=== PATIENT | male | born 1955 | race Hispanic/Latino ===

== ENCOUNTER 2018-07-21 09:17 | Inpatient (IN) | payer MEDICARE ==
[2018-07-18 13:57] LABS: BASOPHILS # (AUTO) 0.1 (0.0-0.1); BASOPHILS % 0.7 % (0.0-1.0); EOSINOPHILS # (AUTO) 0.2 (0.0-0.4); EOSINOPHILS % 2.2 % (0.0-6.0); HEMATOCRIT 47.3 % (38.2-49.6); HEMOGLOBIN 16.2 g/dL (14.0-18.0); LYMPHOCYTES % 39.6 % (18.0-39.1); MEAN CORPUSCULAR HGB CONC 34.2 g/dL (31-35); MEAN CORPUSCULAR VOLUME 93.5 fL (81-99); MONOCYTES # (AUTO) 0.7 (0.2-0.8); NEUTROPHILS # (AUTO) 3.6 (2.1-6.9); PLATELET COUNT 248 x10e3/uL (140-360); RED BLOOD COUNT 5.06 x10e6/uL (4.3-5.7); RED CELL DISTRIBUTION WIDTH 12.5 % (11.7-14.4)
[2018-07-18 14:07] LABS: INR 0.9
[2018-07-18 14:13] LABS: ALANINE AMINOTRANSFERASE 42 IU/L (0-55); ALBUMIN 4.4 g/dL (3.5-5.0); ALBUMIN/GLOBULIN RATIO 1.2 (0.8-2.0); ALKALINE PHOSPHATASE 118 IU/L (40-150); ANION GAP 13.1 mmol/L (8-16); BLOOD UREA NITROGEN 11 mg/dL (7-26); BUN/CREATININE RATIO 10 (6-25); CALCIUM 10.1 mg/dL (8.4-10.2); CARBON DIOXIDE 30 mmol/L (22-29); CHLORIDE 101 mmol/L (98-107); CREATININE, SERUM 1.11 mg/dL (0.72-1.25); EST GLOMERULAR FILTRATION RATE > 60 ML/MIN (60-); GLUCOSE 95 mg/dL (74-118); POTASSIUM 5.1 mmol/L (3.5-5.1); SODIUM 139 mmol/L (136-145)
--- NOTE | 2018-07-18 15:39 | Diagnostic Imaging Report ---
Frontal and lateral views of the chest. HISTORY: Preop, prostate surgery COMPARISON: None available. DISCUSSION: Lungs: The lungs are well inflated. No evidence of a consolidative pneumonia or pulmonary alveolar edema. Pleura: No pleural effusion or pneumothorax. Heart and mediastinum: The cardiomediastinal silhouette appears unremarkable. Bones: No acute osseous lesion. Other: Metallic surgical clips project in the region of the left side of T8. IMPRESSION: No acute radiographic abnormality. Signed by: Dr. Marco Nelson D.O., M.M.M. on 07/18/2018 3:36 PM
[~2018-07-21] VITALS: Ht 167.6 cm; Wt 100.7 kg
[~2018-07-21 09:17] MED LIST: ETODOLAC400 MG PO; GABAPENTIN100 MG PO; TRAMADOL HCL100 MG PO; TYLENOL WITH C1 EACH PO
--- OUTSIDE RECORDS SUMMARY | 2018-07-21 09:19 | XMS REPORT ---
Author [facility] Address Unknown Phone Unavailable Care Team Providers Care Firer Low Pressure Name Role Phone ZACK HOOPER Unavailable Unavailable Problems This patient has no known problems. Allergies, Adverse Reactions, Alerts This patient has no known allergies or adverse reactions. Medications This patient has no known medications. Results Test Description Test Time Test Comments Text Results Atomic Results Result Comments CHEST 2 VIEWS 2018-07-18 15:35:00 [place] [id number] Patient Name: DOUGLAS VILLANUEVA MR #: [id number] : 1955 Age/Sex: 62/M Req #: [id number] Adm Physician: Ordered by: ZACK HOOPER MD Report #: [id number] Location: OR Room/Bed: Procedure: [id number] DX/CHEST 2 VIEWS Exam Date: 07/18/18 Exam Time: 1405 REPORT STATUS: Signed Frontal and lateral views of the chest. HISTORY: Preop, prostate surgery COMPARISON: None available. DISCUSSION: Lungs: The lungs are well inflated. No evidence of a consolidative pneumonia or pulmonary alveolar edema. Pleura: No pleural effusion or pneumothorax. Heart and mediastinum: The cardiomediastinal silhouette appears unremarkable. Bones: No acute osseous lesion. Other: Metallic surgical clips project in the region of the left side of T8. IMPRESSION: No acute radiographic abnormality. Signed by: Dr. Robinson Nelson D.O., M.M.M. on 07/18/2018 3:36 PM Dictated By: ROBINSON NELSON DO 153 Transcribed By: MARIELA on 07/18/181535 COPY TO: ZACK HOOPER MD
--- OUTSIDE RECORDS SUMMARY | 2018-07-21 09:19 | XMS REPORT | Clinical Summary ---
Author Author [employer] Organization [employer] Address Unknown Phone Unavailable Care Team Providers Care Professor Of Communication Name Role Phone Asked, No Pcp PCP Unavailable Allergies No Known Allergies Current Medications Prescription Sig. Disp. Refills Start End Date Status Date acetaminophen-codeine Take 1 tablet by mouth 2 Active (TYLENOL WITH CODEINE #3) (two) times a day as 300-30 mg per tablet needed (moderate to severe pain). gabapentin (NEURONTIN) Take 400 mg by mouth 3 Active 400 mg capsule (three) times a day. etodolac (LODINE) 200 MG Take 200 mg by mouth Active capsule every 8 (eight) hours. traMADol (ULTRAM) 50 mg Take 50 mg by mouth 2 Active tablet (two) times a day as needed for moderate pain (50-100mg as needed for pain). clindamycin (CLEOCIN) 300 Take 300 mg by mouth 3 01/20/01/28/20 Discontin MG capsule (three) times a day. 18 18 ued clotrimazole (LOTRIMIN) 1 Apply 1 application 01/28/20 Discontin % cream topically 2 (two) times a 18 ued day. clindamycin (CLEOCIN) 300 Take 1 capsule (300 mg 30 capsule 0 01/28/20 02/07/20 MG capsule total) by mouth 3 (three) 18 18 times a day for 10 days. amoxicillin-pot Take 1 tablet by mouth 20 tablet 0 03/07/20 03/17/20 clavulanate (AUGMENTIN) every 12 (twelve) hours 18 18 875-125 mg per tablet for 10 days. ibuprofen (ADVIL,MOTRIN) Take 1 tablet (600 mg 20 tablet 0 03/07/20 03/17/20 600 MG tablet total) by mouth every 6 18 18 (six) hours as needed for moderate pain or headaches for up to 10 days. acetaminophen (TYLENOL Take 2 tablets (1,000 mg 20 tablet 0 03/07/20 03/17/20 EXTRA STRENGTH) 500 MG total) by mouth every 6 18 18 tablet (six) hours as needed for mild pain or headaches for up to 10 days. Active Problems Problem Noted Date Cellulitis of right foot 01/23/2018 Electrolyte and fluid disorder 01/23/2018 Obstructive chronic bronchitis with exacerbation (HCC) 01/23/2018 Cellulitis 01/22/2018 Encounters Date Type Specialty Care Team Description 03/07/2018 Emergency Emergency Medicine Popeye Meier MD Strep throat (Primary Dx) 01/27/2018 Patient Quality Jenna, Yuridia R Outreach 01/22/2018 [facility] General Internal Medicine Popeye Kaur MD Abscess of right foot - Encounter Tr Malik MD excluding toes (Primary 01/27/2018 Seferino Padron MD Dx); Cellulitis, unspecified cellulitis site; Chills; Cellulitis of right foot; Obstructive chronic bronchitis with exacerbation 01/20/2018 Hospital Radiology Tr Malik MD Cellulitis, unspecified Encounter cellulitis site; Pain 01/20/2018 Transcribe Radiology Tr Malik MD Cellulitis, unspecified Orders cellulitis site (Primary Dx); Pain after 07/20/2017 Family History Medical History Relation Name Comments Hyperlipidemia Father No Known Problems Mother Relation Name Status Comments Father Mother Social History Tobacco Use Types Packs/Day Years Used Date Never Smoker Smokeless Tobacco: Never Used Alcohol Use Drinks/Week oz/Week Comments No Sex Assigned at Date Recorded Not on file Last Filed Vital Signs Vital Sign Reading Time Taken Blood Pressure 113/69 03/07/2018 8:52 AM CDT Pulse 89 03/07/2018 8:52 AM CDT Temperature 36.8 C (98.2 F) 03/07/2018 8:52 AM CDT Respiratory Rate 20 03/07/2018 8:52 AM CDT Oxygen Saturation 96% 03/07/2018 8:52 AM CDT Inhaled Oxygen - - Concentration Weight 88.5 kg (195 lb) 03/07/2018 7:03 AM CDT Height 167.6 cm (5' 6") 03/07/2018 7:03 AM CDT Body Mass Index 31.47 03/07/2018 7:03 AM CDT Plan of Treatment Health Maintenance Due Date Last Done Comments COLON CANCER SCREENING 2005 SHINGRIX VACCINE (#1) 2005 ZOSTER VACCINE 2015 INFLUENZA VACCINE 04/19/2018 Procedures Procedure Name Priority Date/Time Associated Diagnosis Comments CT SINUS WO CONTRAST STAT 03/07/2018 Results for this 7:55 AM CDT procedure are in the results section. CT HEAD WO CONTRAST STAT 03/07/2018 Results for this 7:53 AM CDT procedure are in the results section. RESPIRATORY PATHOGEN Routine 03/07/2018 Results for this PANEL 7:32 AM CDT procedure are in the results section. INFLUENZA ANTIGEN Routine 03/07/2018 Results for this 7:32 AM CDT procedure are in the results section. GROUP A STREP, RAPID Routine 03/07/2018 Results for this ANTIGEN 7:31 AM CDT procedure are in the results section. ZZESTIMATED GFR STAT 03/07/2018 Results for this 7:16 AM CDT procedure are in the results section. COMPREHENSIVE METABOLIC STAT 03/07/2018 Results for this PANEL 7:16 AM CDT procedure are in the results section. HC COMPLETE BLD COUNT STAT 03/07/2018 Results for this W/AUTO DIFF 7:16 AM CDT procedure are in the results section. GENERAL Routine 01/26/2018 Abscess of right foot Results for this 10:08 AM CDT excluding toes procedure are in the results section. GRAM STAIN Routine 01/26/2018 Results for this 10:00 AM CDT procedure are in the results section. ANAEROBIC CULTURE Routine 01/26/2018 Results for this 10:00 AM CDT procedure are in the results section. AEROBIC CULTURE Routine 01/26/2018 Results for this 10:00 AM CDT procedure are in the results section. ZZESTIMATED GFR Timed 01/24/2018 Results for this 8:17 AM CDT procedure are in the results section. COMPREHENSIVE METABOLIC Timed 01/24/2018 Results for this PANEL 8:17 AM CDT procedure are in the results section. HC COMPLETE BLD COUNT Timed 01/24/2018 Results for this W/AUTO DIFF 8:17 AM CDT procedure are in the results section. VANCOMYCIN LEVEL, TROUGH Timed 01/23/2018 Results for this 8:15 PM CDT procedure are in the results section. US DUPLEX ARTERIAL LOWER Routine 01/23/2018 Results for this EXTREMITY BILATERAL 4:57 PM CDT procedure are in the results section. ZZESTIMATED GFR Routine 01/23/2018 Results for this 2:26 PM CDT procedure are in the results section. THYROID STIMULATING Routine 01/23/2018 Results for this HORMONE 2:26 PM CDT procedure are in the results section. COMPREHENSIVE METABOLIC Routine 01/23/2018 Results for this PANEL 2:26 PM CDT procedure are in the results section. HC COMPLETE BLD COUNT Routine 01/23/2018 Results for this W/AUTO DIFF 2:26 PM CDT procedure are in the results section. LACTIC ACID LEVEL, SEPSIS Timed 01/22/2018 Results for this - NOW AND REPEAT 2X EVERY 11:09 PM CDT procedure are in the 3 HOURS results section. BLOOD CULTURE, AEROBIC & Routine 01/22/2018 Results for this ANAEROBIC 4:58 PM CDT procedure are in the results section. XR FOOT 3+ VW RIGHT STAT 01/22/2018 Results for this 4:54 PM CDT procedure are in the results section. ZZESTIMATED GFR STAT 01/22/2018 Results for this 4:52 PM CDT procedure are in the results section. LACTIC ACID LEVEL, SEPSIS STAT 01/22/2018 Results for this - NOW AND REPEAT 2X EVERY 4:52 PM CDT procedure are in the 3 HOURS results section. BASIC METABOLIC PANEL STAT 01/22/2018 Results for this 4:52 PM CDT procedure are in the results section. HC COMPLETE BLD COUNT STAT 01/22/2018 Results for this W/AUTO DIFF 4:52 PM CDT procedure are in the results section. BLOOD CULTURE, AEROBIC & Routine 01/22/2018 Results for this ANAEROBIC 4:52 PM CDT procedure are in the results section. US DUPLEX VENOUS LOWER STAT 01/20/2018 Cellulitis, unspecified Results for this EXTREMITY RIGHT 7:48 PM CDT cellulitis site procedure are in the Pain results section. after 07/20/2017 Results * CT Sinus Wo Contrast (03/07/2018 7:55 AM) Narrative Performed At EXAMINATION: CT SINUS WO CONTRAST [facility] CLINICAL HISTORY: sinus headache COMPARISON:None TECHNIQUE: Axial noncontrast enhanced images were obtained through the paranasal sinuses. Bone and soft tissue windows were displayed as well as coronal and sagittal reconstructed images.CT imaging was performed with iterative reconstruction technique and/or automated exposure control to reduce radiation dose. FINDINGS: Hypoplastic frontal sinuses are clear. Trace mucosal thickening in a few ethmoid air cells. Trace mucosal thickening of the anterior aspect of the sphenoid sinuses. Trace mucosal thickening of the posteromedial aspect of the left maxillary sinus. Hypoplastic maxillary sinuses. Bilateral maxillary ostiomeatal units, frontoethmoidal, and sphenoethmoidal recesses are patent. Evaluation of the nasal cavity demonstrates mucosal nodularity of the inferior turbinates. There is leftward nasal septal deviation posteriorly with apical spur. No evidence of nasal mass or ulceration. Limited evaluation of the visualized intracranial contents demonstrates no acute abnormality. Orbital contents are unremarkable. Mastoid air cells are clear. Mild enlargement of the palatine tonsils with coarse left palatine tonsillolith. IMPRESSION: No significant paranasal sinus inflammation. Patency of the bilateral sinonasal drainage pathways. [id number] Procedure Note Interface, Radiology Results Incoming - 03/07/2018 8:03 AM CDT EXAMINATION: CT SINUS WO CONTRAST CLINICAL HISTORY: sinus headache COMPARISON: None TECHNIQUE: Axial noncontrast enhanced images were obtained through the paranasal sinuses. Bone and soft tissue windows were displayed as well as coronal and sagittal reconstructed images. CT imaging was performed with iterative reconstruction technique and/or automated exposure control to reduce radiation dose. FINDINGS: Hypoplastic frontal sinuses are clear. Trace mucosal thickening in a few ethmoid air cells. Trace mucosal thickening of the anterior aspect of the sphenoid sinuses. Trace mucosal thickening of the posteromedial aspect of the left maxillary sinus. Hypoplastic maxillary sinuses. Bilateral maxillary ostiomeatal units, frontoethmoidal, and sphenoethmoidal recesses are patent. Evaluation of the nasal cavity demonstrates mucosal nodularity of the inferior turbinates. There is leftward nasal septal deviation posteriorly with apical spur. No evidence of nasal mass or ulceration. Limited evaluation of the visualized intracranial contents demonstrates no acute abnormality. Orbital contents are unremarkable. Mastoid air cells are clear. Mild enlargement of the palatine tonsils with coarse left palatine tonsillolith. IMPRESSION: No significant paranasal sinus inflammation. Patency of the bilateral sinonasal drainage pathways. [id number] Performing Organization Address City/State/Zipcode Phone Number [facility] [address] [place] [address] * CT Head Wo Contrast (03/07/2018 7:53 AM) Narrative Performed At Examination: [facility]: headache Comparison: NONE Technique: Multiple axial CT images of the brain are obtained without the use of intravenous contrast. CT scans are performed using radiation dose reduction techniques. Technical factors are evaluated and adjusted to ensure appropriate moderation of exposure. Automated dose management technology is applied to adjust radiation dose to minimize exposure, while achieving a diagnostic image. FINDINGS: The visualized paranasal sinuses are clear. The mastoid air cells are well aerated. The globes and optic nerves are unremarkable. The ventricles are symmetrical. There is no mass effect or any midline shift. There is no evidence of any extra-axial fluid collection. There is no parenchymal hemorrhage or mass lesion. There is maintenance of the brandt-white junction. The posterior fossa does not demonstrate any masses. IMPRESSION: 1. There Is no acute intracranial abnormality. [facility]-[id number] Procedure Note Interface, Radiology Results Incoming - 03/07/2018 7:59 AM CDT Examination: CT HEAD WO CONTRAST Clinical History: headache Comparison: NONE Technique: Multiple axial CT images of the brain are obtained without the use of intravenous contrast. CT scans are performed using radiation dose reduction techniques. Technical factors are evaluated and adjusted to ensure appropriate moderation of exposure. Automated dose management technology is applied to adjust radiation dose to minimize exposure, while achieving a diagnostic image. FINDINGS: The visualized paranasal sinuses are clear. The mastoid air cells are well aerated. The globes and optic nerves are unremarkable. The ventricles are symmetrical. There is no mass effect or any midline shift. There is no evidence of any extra-axial fluid collection. There is no parenchymal hemorrhage or mass lesion. There is maintenance of the brandt-white junction. The posterior fossa does not demonstrate any masses. IMPRESSION: 1. There Is no acute intracranial abnormality. [facility]-[id number] Performing Organization Address City/State/Zipcode Phone Number [facility] [address] [place] [address] * Respiratory pathogen panel (03/07/2018 7:32 AM) Respiratory pathogen Negative for all pathogens [facility] DEPARTMENT OF panel tested: PATHOLOGY AND Negative for Adenovirus GENOMIC MEDICINE Negative for Coronavirus HKU1 Negative for Coronavirus NL63 Negative for Coronavirus 229E Negative for Coronavirus OC43 Negative for Human Metapneumovirus Negative for Rhinovirus/Enterovirus Negative for Influenza A Negative for Influenza A/H1 Negative for Influenza A/H3 Negative for Influenza A/H1-2009 Negative for Influenza B Negative for Parainfluenza Virus 1 Negative for Parainfluenza Virus 2 Negative for Parainfluenza Virus 3 Negative for Parainfluenza Virus 4 Negative for Respiratory Syncytial Virus Negative for Bordetella pertussis Negative for Chlamydophila pneumoniae Negative for Mycoplasma pneumoniae This real-time PCR assay detects the presence of nucleic acids (RNA or DNA) for the respiratory pathogens listed. A result of "Not-detected" does not exclude the possibility of the presence of one or more pathogens at concentrations less than the detectable limits of the assay. Comment: Specimen Information Specimen Source: Nares Specimen Site: Right Specimen Nares - Right Performing Organization Address City/State/Zipcode Phone Number [facility] DEPARTMENT OF [address] [place] [address] PATHOLOGY AND GENOMIC MEDICINE * Influenza antigen (03/07/2018 7:32 AM) Influenza antigen Negative for Influenza A/B [facility] OF antigen. PATHOLOGY AND Comment: GENOMIC MEDICINE Specimen Information Specimen Source: Nares Specimen Site: Right Specimen Nares - Right Performing Organization Address City/[facility] Phone Number [facility] OF [address] [phone] PATHOLOGY AND [facility] MEDICINE * Group A strep, rapid antigen (03/07/2018 7:31 AM) Group A strep, rapid Positive for Group A Strep [facility] OF antigen result antigen. (A) PATHOLOGY AND Comment: GENOMIC MEDICINE Specimen Information Specimen Source: Throat Specimen Site: Not otherwise specified Specimen Throat - Not otherwise specified Performing Organization Address City/[facility] Phone Number [facility] OF [address] [phone] PATHOLOGY AND [employer] MEDICINE * Estimated GFR (03/07/2018 7:16 AM) Only the most recent of 4 results within the time period is included. GFR Non Af Amer 85 mL/min/1.73 m2 [facility] PATHOLOGY AND GENOMIC MEDICINE GFR Af Amer >90 mL/min/1.73 m2 [facility] OF Comment: PATHOLOGY AND Chronic kidney disease: <60 GENOMIC MEDICINE mL/min/1.73m2 Kidney failure: <15 mL/min/1.73m2 The estimated GFR is calculated from the IDMS-traceable Modification of Diet in Renal Disease Equation. The accuracy of the calculation is poor when the creatinine is normal. Calculated values >90 mL/min/1.73m2 are not reported. This equation has not been validated in children (<18 years), women, the elderly (>70 years), or ethnic groups other than Caucasians and Americans. Specimen Plasma specimen Performing Organization Address City/State/Zipcode Phone Number [address] [phone] [place] [address] PATHOLOGY AND GENOMIC MEDICINE * CBC with platelet and differential (03/07/2018 7:16 AM) Only the most recent of 4 results within the time period is included. WBC 15.9 (H) 4.2 - 11.0 k/uL [facility] OF PATHOLOGY AND GENOMIC MEDICINE RBC 4.91 4.04 - 5.86 m/uL [facility] OF PATHOLOGY AND GENOMIC MEDICINE HGB 15.6 13.0 - 17.3 g/dL [facility] OF PATHOLOGY AND GENOMIC MEDICINE HCT 46.4 (H) 34.0 - 45.0 % [facility] OF PATHOLOGY AND GENOMIC MEDICINE MCV 94.5 80.0 - 98.0 fL [facility] OF PATHOLOGY AND GENOMIC MEDICINE MCH 31.8 27.0 - 34.0 pg [facility] OF PATHOLOGY AND GENOMIC MEDICINE MCHC 33.6 31.5 - 36.5 g/dL [facility] OF PATHOLOGY AND GENOMIC MEDICINE RDW - SD 44.7 37.0 - 51.0 fL [facility] OF PATHOLOGY AND GENOMIC MEDICINE MPV 9.7 7.4 - 10.4 fL [facility] OF PATHOLOGY AND GENOMIC MEDICINE Platelet count 228 150 - 400 k/uL [facility] OF PATHOLOGY AND GENOMIC MEDICINE Nucleated RBC 0.00 /100 WBC [facility] OF PATHOLOGY AND GENOMIC MEDICINE Neutrophils 83.5 (H) 36.0 - 66.0 % [facility] OF PATHOLOGY AND GENOMIC MEDICINE Lymphocytes 7.5 (L) 24.0 - 44.0 % [facility] OF PATHOLOGY AND GENOMIC MEDICINE Monocytes 7.8 (H) 0.0 - 6.0 % [facility] OF PATHOLOGY AND GENOMIC MEDICINE Eosinophils 0.4 0.0 - 6.0 % [facility] OF PATHOLOGY AND GENOMIC MEDICINE Basophils 0.2 0.0 - 1.2 % [facility] OF PATHOLOGY AND GENOMIC MEDICINE Immature granulocytes 0.6 0.0 - 1.0 % [facility] OF PATHOLOGY AND GENOMIC MEDICINE Specimen Blood Performing Organization Address City/State/Zipcode Phone Number [facility] [address] [place] [address] PATHOLOGY AND GENOMIC MEDICINE * Comprehensive metabolic panel (03/07/2018 7:16 AM) Only the most recent of 3 results within the time period is included. Sodium 136 135 - 150 mEq/L [facility] OF PATHOLOGY AND GENOMIC MEDICINE Potassium 3.8 3.5 - 5.0 mEq/L [facility] OF PATHOLOGY AND GENOMIC MEDICINE Chloride 101 100 - 109 mEq/L [facility] OF PATHOLOGY AND GENOMIC MEDICINE CO2 26 24 - 32 mmol/L [facility] OF PATHOLOGY AND GENOMIC MEDICINE Anion gap 9@ANIO 7 - 15 mEq/L [facility] OF PATHOLOGY AND GENOMIC MEDICINE BUN 6 (L) 7 - 18 mg/dL [facility] OF PATHOLOGY AND GENOMIC MEDICINE Creatinine 0.9 0.8 - 1.5 mg/dL [facility] OF PATHOLOGY AND GENOMIC MEDICINE Glucose 138 (H) 65 - 100 mg/dL [facility] OF PATHOLOGY AND GENOMIC MEDICINE Calcium 8.7 8.6 - 10.7 mg/dL [facility] OF PATHOLOGY AND GENOMIC MEDICINE Protein 8.4 (H) 6.3 - 8.2 g/dL [facility] OF PATHOLOGY AND GENOMIC MEDICINE Albumin 4.0 3.2 - 5.0 g/dL [facility] OF PATHOLOGY AND GENOMIC MEDICINE A/G ratio 0.9 0.7 - 3.8 [facility] OF PATHOLOGY AND GENOMIC MEDICINE Alkaline phosphatase 124 (H) 30 - 120 U/L [facility] OF PATHOLOGY AND GENOMIC MEDICINE AST 23 15 - 37 U/L [facility] OF PATHOLOGY AND GENOMIC MEDICINE ALT 34 30 - 65 U/L [facility] OF PATHOLOGY AND GENOMIC MEDICINE Total bilirubin 0.7 0.2 - 1.2 mg/dL [facility] OF PATHOLOGY AND GENOMIC MEDICINE Specimen Plasma specimen Performing Organization Address City/State/Zipcode Phone Number [facility] [address] [place] [address] PATHOLOGY AND GENOMIC MEDICINE * GENERAL (01/26/2018 10:08 AM) Narrative Performed At Tonja Berkowitz MD 01/26/2018 10:10 AM Other, drainage of right foot abscess Date/Time: 01/26/2018 10:09 AM Performed by: TONJA BERKOWITZ Authorized by: TONJA BERKOWITZ Consent: Consent obtained:Written Consent given by:Patient Risks discussed:Bleeding, infection and pain Indications: Indications:Right foot infection, not responding to antibiotics alone Pre-procedure details: Skin preparation:Betadine Preparation: Patient was prepped and draped in the usual sterile fashion Anesthesia (see MAR for exact dosages): Anesthesia method:Local infiltration Local anesthetic:Lidocaine 2% WITH epi Post-procedure details: Patient tolerance of procedure:Tolerated well, no immediate complications Comments: Dictated [id number] * Aerobic culture (01/26/2018 10:00 AM) Aerobic culture isolate Staphylococcus aureus [facility] DEPARTMENT OF Many PATHOLOGY AND , susceptibility to follow [employer] MEDICINE This organism is Methicillin Sensitive. (A) Comment: Specimen Information Specimen Source: Pus Specimen Site: Foot Specimen Pus - Foot Organism Antibiotic Method Susceptibility Staphylococcus aureus Clindamycin LONNY <=0.5 mcg/mL: Susceptible Staphylococcus aureus Erythromycin LONNY <=0.5 mcg/mL: Susceptible Staphylococcus aureus Levofloxacin LONNY <=1 mcg/mL: Susceptible Staphylococcus aureus Linezolid LONNY 2 mcg/mL: Susceptible Staphylococcus aureus Minocycline LONNY <=1 mcg/mL: Susceptible Staphylococcus aureus Oxacillin LONNY 0.5 mcg/mL: Susceptible Staphylococcus aureus Penicillin G LONNY <=0.125 mcg/mL: Susceptible Staphylococcus aureus Rifampin LONNY <=0.5 mcg/mL: Susceptible Staphylococcus aureus Trimethoprim/Sulfamethoxa LONNY <=0.5/9.5 mcg/mL: zole Susceptible Staphylococcus aureus Tetracycline LONNY >8 mcg/mL: Resistant Staphylococcus aureus Vancomycin LONNY 1 mcg/mL: Susceptible Performing Organization Address City/[facility] Phone Number [facility] DEPARTMENT OF [address] [place] [address] PATHOLOGY AND GENOMIC MEDICINE * Gram stain (01/26/2018 10:00 AM) Gram stain isolate Occasional WBC's [facility] DEPARTMENT OF Few Gram positive cocci in PATHOLOGY AND pairs GENOMIC MEDICINE Comment: Specimen Information Specimen Source: Pus Specimen Site: Foot Specimen Pus - Foot Performing Organization Address City/[facility] Phone Number [facility] DEPARTMENT OF [address] [place] [address] PATHOLOGY AND GENOMIC MEDICINE * Anaerobic culture (01/26/2018 10:00 AM) Anaerobic culture isolate No anaerobic organisms [facility] DEPARTMENT OF isolated. PATHOLOGY AND Comment: GENOMIC MEDICINE Specimen Information Specimen Source: Pus Specimen Site: Foot Specimen Pus - Foot Performing Organization Address City/[facility] Phone Number [facility] DEPARTMENT OF [address] [place] [address], [place] [address] PATHOLOGY AND GENOMIC MEDICINE * Vancomycin level, trough (01/23/2018 8:15 PM) Vancomycin, trough 14.3 10.0 - 20.0 ug/mL [facility] Comment: PATHOLOGY AND Therapeutic Ranges: GENOMIC MEDICINE Peak30.0 - 40.0 ug/mL Vowiny85.0 - 20.0 ug/mL Specimen Blood Performing Organization Address City/State/Zipcode Phone Number [facility] OF [address] [place] [address] PATHOLOGY AND GENOMIC MEDICINE * Pv duplex arterial lower extremity (01/23/2018 4:57 PM) Narrative Performed At EXAM: US DUPLEX ARTERIAL LOWER EXTREMITY BILATERAL [facility] HISTORY: cellulitis of the foot with decreased pulses TECHNIQUE: Real-time as well as pulsed and color Doppler evaluation of bilateral common femoral, femoral, popliteal, posterior tibial, anterior tibial, and dorsalis pedis arteries are evaluated. The examination includes a full duplex Doppler scan of the blood vessels (real-time P mode grayscale, Doppler spectral analysis, and Doppler color flow imaging). IMPRESSION: Normal examination. FINDINGS: Peak systolic velocities are as follows: RIGHT LEG: COMMON FEMORAL:89cm/s FEMORAL: Proximal: 87cm/s Mid:95 cm/s Distal:100cm/s POPLITEAL: Proximal:87cm/s Mid:76 cm/s Distal: 84cm/s POSTERIOR TIBIAL: Proximal: 57 cm/s Mid:63 cm/s Distal:73 cm/s ANTERIOR TIBIAL: Proximal: 70 cm/s Mid:99 cm/s Distal:83 cm/s DORSALIS PEDIS: 30 cm/s Waveforms: Triphasic LEFT LEG: COMMON FEMORAL:111 cm/s FEMORAL: Proximal: 89 cm/s Mid:93 cm/s Distal:75 cm/s POPLITEAL: Proximal: 58 cm/s Mid:62 cm/s Distal: 64cm/s POSTERIOR TIBIAL: Proximal: 62 cm/s Mid:42 cm/s Distal:32 cm/s ANTERIOR TIBIAL: Proximal:50cm/s Mid:58 cm/s Distal:70 c m/s DORSALIS PEDIS:99cm/s Waveforms: Triphasic [id number] Procedure Note Interface, Radiology Results Incoming - 01/23/2018 5:12 PM CDT EXAM: US DUPLEX ARTERIAL LOWER EXTREMITY BILATERAL HISTORY: cellulitis of the foot with decreased pulses TECHNIQUE: Real-time as well as pulsed and color Doppler evaluation of bilateral common femoral, femoral, popliteal, posterior tibial, anterior tibial, and dorsalis pedis arteries are evaluated. The examination includes a full duplex Doppler scan of the blood vessels (real-time P mode grayscale, Doppler spectral analysis, and Doppler color flow imaging). IMPRESSION: Normal examination. FINDINGS: Peak systolic velocities are as follows: RIGHT LEG: COMMON FEMORAL: 89cm/s FEMORAL: Proximal: 87cm/s Mid: 95 cm/s Distal: 100cm/s POPLITEAL: Proximal: 87cm/s Mid: 76 cm/s Distal: 84cm/s POSTERIOR TIBIAL: Proximal: 57 cm/s Mid: 63 cm/s Distal: 73 cm/s ANTERIOR TIBIAL: Proximal: 70 cm/s Mid: 99 cm/s Distal: 83 cm/s DORSALIS PEDIS: 30 cm/s Waveforms: Triphasic LEFT LEG: COMMON FEMORAL: 111 cm/s FEMORAL: Proximal: 89 cm/s Mid: 93 cm/s Distal: 75 cm/s POPLITEAL: Proximal: 58 cm/s Mid: 62 cm/s Distal: 64cm/s POSTERIOR TIBIAL: Proximal: 62 cm/s Mid: 42 cm/s Distal: 32 cm/s ANTERIOR TIBIAL: Proximal: 50cm/s Mid: 58 cm/s Distal: 70 c m/s DORSALIS PEDIS: 99cm/s Waveforms: Triphasic [facility]-[id number] Performing Organization Address [facility] Phone Number [facility] [address] [place] [address] * Thyroid stimulating hormone (01/23/2018 2:26 PM) TSH 0.54 0.38 - 4.82 uIU/mL [facility]OLOGY AND GENOMIC MEDICINE Specimen Plasma specimen Performing Organization Address [facility] Phone Number [address] [address] PATHOLOGY AND GENOMIC MEDICINE * Lactic acid level, SEPSIS - Now and repeat 2x every 3 hours (01/22/2018 11:09 PM) Only the most recent of 2 results within the time period is included. Lactic acid 1.1 0.5 - 2.2 mmol/L [facility]OLOGY AND GENOMIC MEDICINE Specimen Blood Performing Organization Address City/[facility] Cent[facility]ode Phone Number [facility] OF [address] [place] [address] PATHOLOGY AND GENOMIC MEDICINE * Blood culture, aerobic & anaerobic (01/22/2018 4:58 PM) Only the most recent of 2 results within the time period is included. Blood culture isolate No growth after 5 days of [facility] DEPARTMENT OF incubation. PATHOLOGY AND Comment: GENOMIC MEDICINE Specimen Information Specimen Source: Blood Specimen Site: RH Specimen Blood Performing Organization Address [facility]/Zipcode Phone Number [facility] DEPARTMENT OF [address] [place] [address] PATHOLOGY AND GENOMIC MEDICINE * XR Foot 3+ Vw Right (01/22/2018 4:54 PM) Narrative Performed At EXAMINATION:XR FOOT 3VW RIGHT [facility] CLINICAL HISTORY:OSTEOMYELITISFOOT COMPARISON:None. IMPRESSION: No fracture or dislocation. No destructive lesion. There is some soft tissue swelling on dorsal the foot. [facility]-[id number] Procedure Note Interface, Radiology Results Incoming - 01/22/2018 5:00 PM CDT EXAMINATION: XR FOOT 3 VW RIGHT CLINICAL HISTORY: OSTEOMYELITIS FOOT COMPARISON: None. IMPRESSION: No fracture or dislocation. No destructive lesion. There is some soft tissue swelling on dorsal the foot. [facility]-[id number] Performing Organization Address [facility]/Zipcode Phone Number [facility] [address] [place] [address] * Basic metabolic panel (01/22/2018 4:52 PM) Sodium 139 135 - 150 mEq/L [facility] OF PATHOLOGY AND [employer] MEDICINE Potassium 4.1 3.5 - 5.0 mEq/L [facility]OLOGY AND GENOMIC MEDICINE Chloride 100 100 - 109 mEq/L [facility] OF PATHOLOGY AND GENOMIC MEDICINE CO2 28 24 - 32 mmol/L [facility]MENT OF PATHOLOGY AND GENOMIC MEDICINE Anion gap 11 7 - 15 mEq/L [facility] OF Comment: PATHOLOGY AND Starting from December [employer] [facility]INE , anion gap calculation no longer incorporates potassium. Please note the change. BUN 10 7 - 18 mg/dL [facility] OF PATHOLOGY AND GENOMIC MEDICINE Creatinine 0.9 0.8 - 1.5 mg/dL [facility] OF PATHOLOGY AND GENOMIC MEDICINE Glucose 91 65 - 100 mg/dL [facility] OF PATHOLOGY AND GENOMIC MEDICINE Calcium 9.3 8.6 - 10.7 mg/dL [facility] OF PATHOLOGY AND GENOMIC MEDICINE Specimen Plasma specimen Performing Organization Address City/State/Zipcode Phone Number [facility] OF [address] [place] [address] PATHOLOGY AND GENOMIC MEDICINE * Us duplex venous lower extremity (01/20/2018 7:48 PM) Narrative Performed At US DUPLEX VENOUS LOWER EXTREMITY RIGHT [facility] CLINICAL INDICATION: L03.90 Cellulitisunspecified, R52 Painunspecified, Cellulitis, PAIN COMPARISON:None COMMENTS: Sonographic evaluation of the right lower extremity was performed utilizing compression sonography and color Doppler interrogation. The right common femoral vein, superficial and visualized profunda femoral veins and popliteal vein are normal in course and caliber and exhibit normal compressibility, flow variation and Doppler signal throughout. The visualized deep veins of the right calf are within normal limits with normal flow variation. The contralateral common femoral vein was also interrogated and demonstrates appropriate Doppler signal. IMPRESSION: No evidence of right lower extremity deep venous thrombosis. [facility]-[id number] Procedure Note Interface, Radiology Results Incoming - 01/20/2018 7:55 PM CDT US DUPLEX VENOUS LOWER EXTREMITY RIGHT CLINICAL INDICATION: L03.90 Cellulitis unspecified, R52 Pain unspecified, Cellulitis, PAIN COMPARISON: None COMMENTS: Sonographic evaluation of the right lower extremity was performed utilizing compression sonography and color Doppler interrogation. The right common femoral vein, superficial and visualized profunda femoral veins and popliteal vein are normal in course and caliber and exhibit normal compressibility, flow variation and Doppler signal throughout. The visualized deep veins of the right calf are within normal limits with normal flow variation. The contralateral common femoral vein was also interrogated and demonstrates appropriate Doppler signal. IMPRESSION: No evidence of right lower extremity deep venous thrombosis. [facility]-[id number] Performing Organization Address City/State/Zipcode Phone Number [facility] [address] [place] [address] after 07/20/2017 Insurance Payer Benefit Subscriber ID Type Phone Address Plan / Group MEDICARE MEDICARE xxxxxxxxxx Medicare [place], [place] PART [place] [address]
[2018-07-21] MEDS ORDERED: CEFOXITIN SOD 1 GM VIAL ONE (09:38)
[2018-07-21] MEDS ORDERED: BELLADONNA/OPIUM 60 MG SUPP PR ONE (11:21)
[2018-07-21] MEDS ORDERED: HYDROMORPHONE 2MG/ML 2 MG/ML ML ONE (12:25)
[2018-07-21] MEDS ORDERED: MORPHINE SULFATE 2 MG/ML SYR ONE (12:52)
--- OUTSIDE RECORDS SUMMARY | 2018-07-21 12:54 | XMS REPORT | Clinical Summary ---
Author Author [employer] [place] [employer] [facility] [employer] Address Unknown Phone Unavailable Care Team Providers Care Mill[place] Name Role Phone Asked, No Pcp PCP [...] Patient Quality Jenna, Yuridia R Outreach 01/22/2018 [facility] General Internal Medicine Popeye Kaur MD [...] Patency of the bilateral sinonasal drainage pathways. [id number] Procedure Note Interface, Radiology Results Incoming - [...] Patency of the bilateral sinonasal drainage pathways. [id number] Performing Organization Address City/State/Zipcode Phone Number [facility] [address] [place] [address] * CT Head Wo Contrast (03/07/2018 7:53 AM) Narrative Performed At Examination: CT HEAD WO CONTRAST [facility] Clinical History: headache Comparison: NONE Technique: Multiple [...] 1. There Is no acute intracranial abnormality. [facility]-[id number] Procedure Note Interface, Radiology Results Incoming - [...] 1. There Is no acute intracranial abnormality. [facility]-[id number] Performing Organization Address City/State/Zipcode Phone Number [facility] [address] [place] [address] * Respiratory pathogen panel (03/07/2018 7:32 AM) Respiratory pathogen Negative for all pathogens [facility] DEPARTMENT OF panel tested: PATHOLOGY AND Negative [...] Right Performing Organization Address City/State/Zipcode Phone Number [facility] DEPARTMENT OF [address] [place] [address] PATHOLOGY AND GENOMIC MEDICINE * Influenza antigen (03/07/2018 7:32 AM) Influenza antigen Negative for Influenza A/B [facility] DEPARTMENT OF antigen. PATHOLOGY AND Comment: GENOMIC MEDICINE Specimen Information Specimen Source: Nares Specimen Site: Right Specimen Nares - Right Performing Organization Address City/[facility] Phone Number [facility] DEPARTMENT OF [address] [phone] PATHOLOGY AND [facility] * Group A strep, rapid antigen (03/07/2018 7:31 AM) Group A strep, rapid Positive for Group A Strep [facility] DEPARTMENT OF antigen result antigen. (A) PATHOLOGY AND Comment: GENOMIC MEDICINE Specimen Information Specimen Source: Throat Specimen Site: Not otherwise specified Specimen Throat - Not otherwise specified Performing Organization Address City/[facility]code Phone Number [facility] DEPARTMENT OF [address] [phone] PATHOLOGY AND [employer] MEDICINE * Estimated GFR (03/07/2018 7:16 AM) Only the most recent of 4 results within the time period is included. GFR Non Af Amer 85 mL/min/1.73 m2 [facility] DEPARTMENT OF PATHOLOGY AND GENOMIC MEDICINE GFR Af Amer >90 mL/min/1.73 m2 [facility] DEPARTMENT OF Comment: PATHOLOGY AND Chronic kidney [...] specimen Performing Organization Address City/State/Zipcode Phone Number [place] [address] [place] [address] PATHOLOGY AND GENOMIC MEDICINE * CBC with platelet and differential (03/07/2018 7:16 AM) Only the most recent of 4 results within the time period is included. WBC 15.9 (H) 4.2 - 11.0 k/uL [facility] DEPARTMENT OF PATHOLOGY AND GENOMIC MEDICINE RBC 4.91 4.04 - 5.86 m/uL [facility] OF PATHOLOGY AND GENOMIC MEDICINE HGB 15.6 13.0 - 17.3 g/dL [facility] DEPARTMENT OF PATHOLOGY AND GENOMIC MEDICINE HCT 46.4 (H) 34.0 - 45.0 % [facility] DEPARTMENT OF PATHOLOGY AND GENOMIC MEDICINE MCV 94.5 80.0 - 98.0 fL [facility] DEPARTMENT OF PATHOLOGY AND GENOMIC MEDICINE MCH 31.8 27.0 - 34.0 pg [facility] DEPARTMENT OF PATHOLOGY AND GENOMIC MEDICINE MCHC 33.6 31.5 - 36.5 g/dL [facility] DEPARTMENT OF PATHOLOGY AND GENOMIC MEDICINE RDW - SD 44.7 37.0 - 51.0 fL [facility] DEPARTMENT OF PATHOLOGY AND GENOMIC MEDICINE MPV 9.7 7.4 - 10.4 fL [facility] DEPARTMENT OF PATHOLOGY AND GENOMIC MEDICINE Platelet count 228 150 - 400 k/uL [facility] DEPARTMENT OF PATHOLOGY AND GENOMIC MEDICINE Nucleated RBC 0.00 /100 WBC [facility] DEPARTMENT OF PATHOLOGY AND GENOMIC MEDICINE Neutrophils 83.5 (H) 36.0 - 66.0 % [facility] DEPARTMENT OF PATHOLOGY AND GENOMIC MEDICINE Lymphocytes 7.5 (L) 24.0 - 44.0 % [facility] DEPARTMENT OF PATHOLOGY AND GENOMIC MEDICINE Monocytes 7.8 (H) 0.0 - 6.0 % [facility] DEPARTMENT OF PATHOLOGY AND GENOMIC MEDICINE Eosinophils 0.4 0.0 - 6.0 % [facility] OF PATHOLOGY AND GENOMIC MEDICINE Basophils 0.2 0.0 - 1.2 % [facility] DEPARTMENT OF PATHOLOGY AND GENOMIC MEDICINE Immature granulocytes 0.6 0.0 - 1.0 % [facility] OF PATHOLOGY AND GENOMIC MEDICINE Specimen Blood Performing Organization Address City/State/Zipcode Phone Number [facility] [address] [place] [address] PATHOLOGY AND GENOMIC MEDICINE * Comprehensive metabolic panel (03/07/2018 7:16 AM) Only the most recent of 3 results within the time period is included. Sodium 136 135 - 150 mEq/L [facility] DEPARTMENT OF PATHOLOGY AND GENOMIC MEDICINE Potassium 3.8 3.5 - 5.0 mEq/L [facility] DEPARTMENT OF PATHOLOGY AND GENOMIC MEDICINE Chloride 101 100 - 109 mEq/L [facility] DEPARTMENT OF PATHOLOGY AND GENOMIC MEDICINE CO2 26 24 - 32 mmol/L [facility] DEPARTMENT OF PATHOLOGY AND GENOMIC MEDICINE Anion gap 9@ANIO 7 - 15 mEq/L [facility] DEPARTMENT OF PATHOLOGY AND GENOMIC MEDICINE BUN 6 (L) 7 - 18 mg/dL [facility] DEPARTMENT OF PATHOLOGY AND GENOMIC MEDICINE Creatinine 0.9 0.8 - 1.5 mg/dL [facility] DEPARTMENT OF PATHOLOGY AND GENOMIC MEDICINE Glucose 138 (H) 65 - 100 mg/dL [facility] DEPARTMENT OF PATHOLOGY AND GENOMIC MEDICINE Calcium 8.7 8.6 - 10.7 mg/dL [facility] DEPARTMENT OF PATHOLOGY AND GENOMIC MEDICINE Protein 8.4 (H) 6.3 - 8.2 g/dL [facility] DEPARTMENT OF PATHOLOGY AND GENOMIC MEDICINE Albumin 4.0 3.2 - 5.0 g/dL [facility] DEPARTMENT OF PATHOLOGY AND GENOMIC MEDICINE A/G ratio 0.9 0.7 - 3.8 [facility] DEPARTMENT OF PATHOLOGY AND GENOMIC MEDICINE Alkaline phosphatase 124 (H) 30 - 120 U/L [facility] DEPARTMENT OF PATHOLOGY AND GENOMIC MEDICINE AST 23 15 - 37 U/L [facility] DEPARTMENT OF PATHOLOGY AND GENOMIC MEDICINE ALT 34 30 - 65 U/L [facility] DEPARTMENT OF PATHOLOGY AND GENOMIC MEDICINE Total bilirubin 0.7 0.2 - 1.2 mg/dL [facility] DEPARTMENT OF PATHOLOGY AND GENOMIC MEDICINE Specimen Plasma specimen Performing Organization Address City/State/Zipcode Phone Number [facility] [address] [place] [address] PATHOLOGY AND GENOMIC MEDICINE * GENERAL (01/26/2018 [...] procedure:Tolerated well, no immediate complications Comments: Dictated [id number] * Aerobic culture (01/26/2018 10:00 AM) Aerobic culture isolate Staphylococcus aureus [facility] DEPARTMENT OF Many PATHOLOGY AND , susceptibility to follow [employer] MEDICINE This organism is Methicillin Sensitive. (A) [...] LONNY 1 mcg/mL: Susceptible Performing Organization Address City/[facility] Phone Number [facility] DEPARTMENT OF [address] [place] [address] PATHOLOGY AND GENOMIC MEDICINE * Gram stain (01/26/2018 10:00 AM) Gram stain isolate Occasional WBC's [facility] DEPARTMENT OF Few Gram positive cocci in PATHOLOGY AND pairs GENOMIC MEDICINE Comment: Specimen Information Specimen Source: Pus Specimen Site: Foot Specimen Pus - Foot Performing Organization Address City/[facility] Phone Number [facility] DEPARTMENT OF [address] [place] [address] PATHOLOGY AND GENOMIC MEDICINE * Anaerobic culture (01/26/2018 10:00 AM) Anaerobic culture isolate No anaerobic organisms [facility] DEPARTMENT OF isolated. PATHOLOGY AND Comment: GENOMIC MEDICINE Specimen Information Specimen Source: Pus Specimen Site: Foot Specimen Pus - Foot Performing Organization Address City/[facility] Phone Number [facility] DEPARTMENT OF [address] [place] [address], [place] [address] PATHOLOGY AND GENOMIC MEDICINE * Vancomycin level, trough (01/23/2018 8:15 PM) Vancomycin, trough 14.3 10.0 - 20.0 ug/mL [facility] DEPARTMENT OF Comment: PATHOLOGY AND Therapeutic Ranges: GENOMIC MEDICINE Peak30.0 - 40.0 ug/mL Kzjijf23.0 - 20.0 ug/mL Specimen Blood Performing Organization Address City/State/Zipcode Phone Number [facility] DEPARTMENT OF [address] [place] [address] PATHOLOGY AND GENOMIC MEDICINE * Pv duplex [...] Distal:70 c m/s DORSALIS PEDIS:99cm/s Waveforms: Triphasic [id number] Procedure Note Interface, Radiology Results Incoming - [...] c m/s DORSALIS PEDIS: 99cm/s Waveforms: Triphasic [facility]-[id number] Performing Organization Address [facility] Phone Number [facility] [address] [place] [address] * Thyroid stimulating hormone (01/23/2018 2:26 PM) TSH 0.54 0.38 - 4.82 uIU/mL [facility] DEPARTMENT OF PATHOLOGY AND GENOMIC MEDICINE Specimen Plasma specimen Performing Organization Address [facility]alscohi Phone Number [address] [address] PATHOLOGY AND GENOMIC MEDICINE * Lactic acid level, SEPSIS - Now and repeat 2x every 3 hours (01/22/2018 11:09 PM) Only the most recent of 2 results within the time period is included. Lactic acid 1.1 0.5 - 2.2 mmol/L [facility] DEPARTMENT OF PATHOLOGY AND GENOMIC MEDICINE Specimen Blood Performing Organization Address City/[facility] Phone Number [facility] DEPARTMENT OF [address] [place] [address] PATHOLOGY AND GENOMIC MEDICINE * Blood culture, aerobic & anaerobic (01/22/2018 4:58 PM) Only the most recent of 2 results within the time period is included. Blood culture isolate No growth after 5 days of [facility] DEPARTMENT OF incubation. PATHOLOGY AND Comment: GENOMIC MEDICINE Specimen Information Specimen Source: Blood Specimen Site: RH Specimen Blood Performing Organization Address [facility]/Zipcode Phone Number [facility] DEPARTMENT OF [address] [place] [address] PATHOLOGY AND GENOMIC MEDICINE * XR Foot 3+ Vw Right (01/22/2018 4:54 PM) Narrative Performed At EXAMINATION:XR FOOT 3VW RIGHT [facility] CLINICAL HISTORY:OSTEOMYELITISFOOT COMPARISON:None. IMPRESSION: No fracture or dislocation. No destructive lesion. There is some soft tissue swelling on dorsal the foot. [facility]-[id number] Procedure Note Interface, Radiology Results Incoming - 01/22/2018 5:00 PM CDT EXAMINATION: XR FOOT 3 VW RIGHT CLINICAL HISTORY: OSTEOMYELITIS FOOT COMPARISON: None. IMPRESSION: No fracture or dislocation. No destructive lesion. There is some soft tissue swelling on dorsal the foot. [facility]-[id number] Performing Organization Address [facility]/Zipcode Phone Number [facility] [address] [place] [address] * Basic metabolic panel (01/22/2018 4:52 PM) Sodium 139 135 - 150 mEq/L [facility] DEPARTMENT OF PATHOLOGY AND [employer] MEDICINE Potassium 4.1 3.5 - 5.0 mEq/L [facility] DEPARTMENT OF PATHOLOGY AND GENOMIC MEDICINE Chloride 100 100 - 109 mEq/L [facility] DEPARTMENT OF PATHOLOGY AND GENOMIC MEDICINE CO2 28 24 - 32 mmol/L [facility] DEPARTMENT OF PATHOLOGY AND GENOMIC MEDICINE Anion gap 11 7 - 15 mEq/L [facility] DEPARTMENT OF Comment: PATHOLOGY AND Starting from December [employer] MEDICINE , anion gap calculation no longer incorporates potassium. Please note the change. BUN 10 7 - 18 mg/dL [facility] DEPARTMENT OF PATHOLOGY AND GENOMIC MEDICINE Creatinine 0.9 0.8 - 1.5 mg/dL [facility] DEPARTMENT OF PATHOLOGY AND GENOMIC MEDICINE Glucose 91 65 - 100 mg/dL [facility] DEPARTMENT OF PATHOLOGY AND GENOMIC MEDICINE Calcium 9.3 8.6 - 10.7 mg/dL [facility] DEPARTMENT OF PATHOLOGY AND GENOMIC MEDICINE Specimen Plasma specimen Performing Organization Address City/State/Zipcode Phone Number [facility] DEPARTMENT OF [address] [place] [address] PATHOLOGY AND GENOMIC MEDICINE * Us duplex [...] of right lower extremity deep venous thrombosis. [facility]-[id number] Procedure Note Interface, Radiology Results Incoming - [...] of right lower extremity deep venous thrombosis. [facility]-[id number] Performing Organization Address City/State/Zipcode Phone Number [facility] [address] [place] [address] after 07/20/2017 Insurance Payer Benefit Subscriber ID Type Phone Address Plan / Group MEDICARE MEDICARE xxxxxxxxxx Medicare [place], [place] [address]
[2018-07-21 14:05] VITALS: BP 142/88
[2018-07-21] MEDS: SODIUM CHLORIDE 0.9% 1000ML 1,000 ML IV SCH ×2 (14:15→21:10)
[2018-07-21] MEDS: MORPHINE SULFATE INJ 4 MG/ML INJ IV PRN ×2 (14:16→21:20)
[2018-07-21] MEDS: GABAPENTIN 100 MG CAP PO SCH ×2 (14:16→21:09)
--- NOTE | 2018-07-21 14:37 | Operative Report ---
DATE OF PROCEDURE: July 21, 2018 PREOPERATIVE DIAGNOSIS: POSTOPERATIVE DIAGNOSIS: OPERATION PERFORMED: ANESTHESIA: INCOMPLETE REPORT Job#: [id number]
--- NOTE | 2018-07-21 14:49 | Operative Report ---
DATE OF PROCEDURE: July 21, 2018 PREOPERATIVE DIAGNOSIS: Benign prostatic hypertrophy with obstruction and bladder neck contracture. POSTOPERATIVE DIAGNOSIS: Of abscess hypertrophy with obstruction bladder neck contracture and urethral stricture. Surgeon's Dr. Anjum kilpatrick and the tip of the. OPERATION PERFORMED: Benign prostatic hypertrophy with obstruction bladder neck contracture and urethral stricture. OPERATION PERFORMED: GreenLight photovaporization of the prostate. ANESTHESIA: General. INDICATIONS: This patient is a 62-year-old male who has a long history of prostate problems. He had previous prostate surgery back in 2007 and 2006. He was now developing problems with decreased force of stream. I did flexible cystoscopy and uroflow on him which revealed a tight bladder neck contracture and I could not insert the flexible cystoscope beyond the bladder neck contracture. For further details, please refer to the medical records that I added to the patient's chart. The procedure was done in the following fashion: DESCRIPTION OF PROCEDURE: Patient was taken to the operating room and placed under general anesthesia, and dressed and draped with Hibiclens in lithotomy position in the usual fashion. The 22-[place] Olympus laser cystoscope was inserted with the 30 degree oblique lens. There was a moderate urethral stricture present which I was able to bypass and I then saw the sphincter was intact. The verumontanum was intact, but I really could not get much beyond the verumontanum because there was a tight bladder neck contracture and it was difficult to even see the opening with the 30 degree oblique lens. Therefore, I switched over to the 12 degree oblique lens and I was able to see the bladder neck contracture much more easily. I then used the MoXy XPS fiber with the GreenLight laser to do a PVP. I started out with the coagulation of 40 and vaporization at 80 and I began working first at the bladder neck contracture in the other 6 o'clock position. I then worked my way circumferentially around the bladder neck contracture with the vaporization set at 80. Once the bladder neck contracture was wide open, I could then look into the bladder and I could also further assess the prostate. As I looked into the bladder, I could see clear efflux in both ureteral orifices with a moderate bladder trabeculation. No bladder tumors were identified. I then switched over to the 30 degree oblique lens in order to have safety on the telescope and lens. At this point in time as I moved back from the bladder neck, I increased the vaporization to 120. There was a substantial amount of regrown prostatic adenoma present and there were also numerous intraprostatic calcifications encountered. I began working first on the left side and then on the right side of the prostate in the area around the verumontanum. At the end the procedure, I could see that the verumontanum was intact and the bladder neck and prostate were wide open. The laser cystoscope was withdrawn. My estimated blood loss was about 50 mL. But then I had trouble inserting a 24-[place]er coude irrigating catheter. Therefore, I my next step was to dilate the urethra with [place] sounds from 18-[place]ong [place]er to 30-[place]ong [place]er. Once this was accomplished, I was then able to easily insert the 24-[place]er coude irrigating catheter through. The patient tolerated the procedure well and left the operating room in good condition with the catheters in gentle traction. Total number of joles was [id number]. Job#: [id number] ARAVIND
[2018-07-21 16:05] VITALS: BP 142/88
--- NOTE | 2018-07-21 17:05 | Progress Note ---
DATE: July 21, 2018 UROLOGICAL PROGRESS NOTE The patient is now status post GreenLight photovaporization of prostate. I was contacted by the nursing staff stating that he was severely nauseated and had some pain. He had recently been given some morphine and then started complaining of nausea. Physical examination reveals the patient is alert and oriented to person, place and time. His bladder is not distended. The catheter efflux from the continuous bladder irrigation is fairly clear. The catheter is off traction. There is no evidence of a deep venous thrombophlebitis. The bladder is not distended or tender. My plan at this time is to get a basic metabolic profile to make sure he has not developed hyponatremia, and I am starting the patient on Zofran 4 mg IV q.6 h. p.r.n. nausea. Job#: [id number] EV
[2018-07-21 17:27] VITALS: BP 135/66
[2018-07-21] MEDS ORDERED: FENTANYL CITRATE/PF 100MCG/2 ML INJ ONE (17:44)
[2018-07-21] MEDS: DOCUSATE SODIUM 100 MG CAP PO SCH (17:44)
[2018-07-21] MEDS ORDERED: MIDAZOLAM HCL 2 MG/2 ML VIAL ONE (17:44)
[2018-07-21] MEDS: CEFOXITIN SOD 1 GM VIAL IV SCH ×2 (17:44→23:11)
[2018-07-21] MEDS ORDERED: CEFOXITIN 1GM/ NS 50ML 50 ML IV SCH (18:00)
[2018-07-21 18:15] LABS: ANION GAP 15.3 mmol/L (8-16); BLOOD UREA NITROGEN 10 mg/dL (7-26); BUN/CREATININE RATIO 12 (6-25); CALCIUM 9.2 mg/dL (8.4-10.2); CARBON DIOXIDE 26 mmol/L (22-29); CHLORIDE 102 mmol/L (98-107); CREATININE, SERUM 0.85 mg/dL (0.72-1.25); EST GLOMERULAR FILTRATION RATE > 60 ML/MIN (60-); GLUCOSE 155 mg/dL (74-118); POTASSIUM 4.3 mmol/L (3.5-5.1); SODIUM 139 mmol/L (136-145)
[2018-07-21 19:46] VITALS: BP 154/90
[2018-07-21] MEDS: ONDANSETRON HCL INJ 2 MG/ML VIAL IV PRN (21:20)
[2018-07-21 22:17] VITALS: BP 154/90
[2018-07-22] VITALS (7 sets, daily range): BP systolic 112–140; BP diastolic 61–88
[2018-07-22] MEDS: ONDANSETRON HCL INJ 2 MG/ML VIAL IV PRN (03:36)
[2018-07-22] MEDS: MORPHINE SULFATE INJ 4 MG/ML INJ IV PRN (03:36)
[2018-07-22] MEDS: CEFOXITIN SOD 1 GM VIAL IV SCH ×3 (05:28→17:59)
[2018-07-22] MEDS: GABAPENTIN 100 MG CAP PO SCH ×3 (05:28→21:51)
[2018-07-22] MEDS: SODIUM CHLORIDE 0.9% 1000ML 1,000 ML IV SCH ×2 (08:32→17:59)
--- NOTE | 2018-07-22 08:37 | Consultation ---
DATE OF CONSULTATION: July 22, 2018 REQUESTING PHYSICIAN: Dr. Enriquez. REASON FOR CONSULTATION: Medical management. CHIEF COMPLAINT: Enlarged prostate. HISTORY OF PRESENT ILLNESS: This is a 62-year-old man with a history of BPH who has had a TURP and laser ablation in the past but due to persistence of symptoms he came into hospital for elective green laser light photoablation of the prostate. The patient underwent the procedure and now resting in bed comfortably. Denies any shortness of breath or chest pain. He has mild discomfort at the catheter site. PAST MEDICAL HISTORY: BPH, status post TURP and laser ablation, chronic prostatitis, impotence, hematuria, bronchitis, solitary pulmonary nodule in 2013, peptic ulcer disease, and neuropathy. PAST SURGICAL HISTORY: Appendectomy; back surgery; TURP in 2002, 2004 and 2006. ALLERGIES: PER ELECTRONIC MEDICAL RECORDS. FAMILY HISTORY: Brother had cancer of the hypopharynx, uncle had diabetes, and grandfather had heart attack. SOCIAL HISTORY: The patient is . He denies any illicit or cigarette use. He drinks alcohol occasionally. He works in [employer]. MEDICATIONS: Per electronic medical records. REVIEW OF SYSTEMS: Denies any dizziness, chest pain, shortness of breath, fevers, chills, nausea, vomiting, diarrhea, headache, or back pain. PHYSICAL EXAMINATION VITAL SIGNS: Have been reviewed. GENERAL APPEARANCE: A tired-appearing man, resting in bed. HEENT: Anicteric. Pupils are reactive to light. No oral lesions. CARDIOVASCULAR: Normal S1 and S2. LUNGS: Normal breath sounds. ABDOMEN: Soft, nontender, and nondistended. : He has a Zaragoza catheter in place with dark pink urine. EXTREMITIES: No edema or calf tenderness. He has SCDs bilaterally. SKIN: Dry. PSYCHIATRIC: Normal affect. LABS: Reviewed. MEDICATIONS: Reviewed. ASSESSMENT: This is a 62-year-old man with; 1. Benign prostatic hypertrophy. 2. Obesity, BMI is 35.6. 3. Neuropathy. 4. Impotence. 5. History of solitary pulmonary nodule. PLAN 1. He is status post GreenLight photoablation of the prostate. Zaragoza is in place. He is receiving irrigation. 2. We will screen for diabetes and obtain lipid panel. 3. Continue bowel regimen. 4. Continue SCDs for DVT prophylaxis. DISCHARGE PLANNING: We will continue irrigation and defer discharge plan to Dr. Enriquez. Job#: [id number] MERVAT
[2018-07-22] MEDS: DOCUSATE SODIUM 100 MG CAP PO SCH ×2 (09:00→16:54)
[2018-07-22] MEDS: HYDROCODONE/APAP 7.5MG-325MG 1 EA TAB PO PRN (13:04)
--- NOTE | 2018-07-22 13:37 | Progress Note ---
DATE: July 22, 2018 UROLOGY PROGRESS NOTE The patient is now 1 day status post GreenLight photovaporization of the prostate and a bladder neck contracture. The patient states that he feels good. His pain is greatly improved. His abdomen is soft. He has been advanced to a regular diet. He has had a bowel movement last night. His sodium is 139, potassium 4.3, BUN 10, creatinine 0.85. His temperature is 96.8. His abdomen is soft. His lungs are clear. There is no evidence of a deep venous thrombophlebitis. The catheter efflux is running slow. His hemoglobin was 16.2 and hematocrit 47.3. My plan at this time is to remove the Zaragoza catheter tomorrow for a trial of voiding. Job#: [id number] LPA
[2018-07-23] VITALS: BP 116/72
[2018-07-23] MEDS: CEFOXITIN SOD 1 GM VIAL IV SCH ×2 (00:45→05:26)
[2018-07-23] MEDS: HYDROCODONE/APAP 7.5MG-325MG 1 EA TAB PO PRN ×3 (00:50→11:35)
[2018-07-23 04:00] VITALS: BP 133/78
[2018-07-23] MEDS: MORPHINE SULFATE INJ 4 MG/ML INJ IV PRN (04:15)
[2018-07-23] MEDS: SODIUM CHLORIDE 0.9% 1000ML 1,000 ML IV SCH (05:26)
[2018-07-23] MEDS: GABAPENTIN 100 MG CAP PO SCH (05:26)
[2018-07-23 07:30] VITALS: BP 133/100
[2018-07-23 08:15] VITALS: BP 133/100
[2018-07-23] MEDS: DOCUSATE SODIUM 100 MG CAP PO SCH (09:00)
[2018-07-23] MEDS ORDERED: MACROBID 100 M100 MG PO ×2 (11:17→11:23)
[2018-07-23] MEDS ORDERED: COLACE100 MG PO ×2 (11:19→11:25)
--- NOTE | 2018-07-23 12:06 | Progress Note ---
DATE: July 23, 2018 DISCHARGE PROGRESS NOTE The patient is now 2 days status post green light photovaporization of the prostate. The Zaragoza catheter was removed this morning. The patient is voiding with a good urinary stream. He has perfect control over micturition. He states he feels well enough to go home. His urine is light pink color. Physical examination reveals his lungs are clear. His abdomen is soft and there is no evidence of epididymitis. My plan at this time is to discharge the patient on Macrobid 100 mg p.o. twice daily number 20 and on Colace 100 mg p.o. twice a day number 60. He will have return appointment to see me again in 2 weeks. Job#: [id number] KENIA
[2018-07-23 12:24] VITALS: BP 156/95
[2018-07-23] MEDS ORDERED: PROPOFOL IV EMULSION 10 MG/ML 20 ML VIAL IV ONE (13:06)
[2018-07-23] MEDS ORDERED: DEXAMETHASONE SOD PHOS INJ 4 MG/ML VIAL IV ONE (13:06)
[2018-07-23] MEDS ORDERED: LIDOCAINE HCL 2% LOCAL INJ 5 ML SDV VIAL INJ ONE (13:06)
[2018-07-23] MEDS ORDERED: SEVOFLURANE INHAL SOLN 250 ML PEN BTL INH ONE (13:06)
[2018-07-23] MEDS ORDERED: KETOROLAC TROMETHAMINE 30 MG/ML VIAL IV ONE (13:06)
[2018-07-23] MEDS ORDERED: ONDANSETRON HCL INJ 2 MG/ML VIAL IV ONE (13:06)
--- NOTE | 2018-07-24 00:13 | Discharge Summary ---
CONSULTING PHYSICIAN: Dr. Santos Gentile. FINAL DISCHARGE DIAGNOSES 1. Benign prostatic hypertrophy with obstruction. 2. Bladder neck contracture. 3. He also has degenerative disk disease and gastroesophageal reflux disease and hemorrhoids. OPERATION PERFORMED: GreenLight photovaporization of the prostate. SURGEON: Dr. Zack Enriquez. HISTORY OF PRESENT ILLNESS: This patient is a 62-year-old male with a long history of prostate problems. His last GreenLight photovaporization of the prostate was in 2007. The patient did well for many years and then developed a decreased force of stream, urgency, frequency, and nocturia. A cystoscopy and uroflow revealed that he had a tight bladder neck contracture and the bladder neck contracture was so tight that I could not pass the flexible cystoscope beyond the bladder neck contracture. For further details, please refer to the history and physical. HOSPITAL COURSE: The patient came into the hospital on July 21, 2018, and had a GreenLight photovaporization of the prostate. He tolerated the procedure well and left the operating room in good condition with a 3-way catheter to continuous bladder irrigation. He was also found to have a mild urethral stricture at that time and his urethra had been dilated prior to insertion of the Zaragoza catheter which was a 3-way irrigating catheter using [place] sounds. The patient had a good postoperative course. He had some mild nausea immediately following the surgery. His electrolytes were normal. He responded well to Zofran. On the 2nd postoperative day, the Zaragoza catheter was removed and the patient voided with a good urinary stream with perfect control. He felt well enough to go home. He was discharged on Macrobid 100 mg p.o. twice daily, #20 and on Colace 100 mg p.o. twice daily, #60. He will have return appointment to see me again in 2 weeks. ZACK ENRIQUEZ MD Job#: [id number] CF
== END 2018-07-23 13:07 | disposition home or self-care (01) | DRG 713 ==
LOC: OR 09:17 → PACU V 12:42 → MED/SURG2 14:02
PROVIDERS: ADMIT Urology; ATTEND Urology
PROC: 0T7D8ZZ Dilation of Urethra, Via Natural or Artificial Opening Endoscopic (ICD-10-PCS; 2018-07-21)
PROC: 0V508ZZ Destruction of Prostate, Via Natural or Artificial Opening Endoscopic (ICD-10-PCS; principal; 2018-07-21 11:00)
PROC: 0T5C8ZZ Destruction of Bladder Neck, Via Natural or Artificial Opening Endoscopic (ICD-10-PCS; 2018-07-21 11:00)
DX: N40.1 Benign prostatic hyperplasia with lower urinary tract symptoms (principal); N13.8 Other obstructive and reflux uropathy; N35.819 Other urethral stricture, male, unspecified site; M19.90 Unspecified osteoarthritis, unspecified site; Z87.11 Personal history of peptic ulcer disease; M51.36 Other intervertebral disc degeneration, lumbar region; K21.9 Gastro-esophageal reflux disease without esophagitis
CPT/HCPCS: 36415; 52648; 71046; 80048; 80053; 80061; 83036; 84132; 85025; 85610; 85730; 93005; J0694; J1100; J1885; J2001; J2250; J2270; J2405; J7030